=== PATIENT | male | born 1980 | race Caucasian/White ===

== ENCOUNTER 2022-11-24 09:23 | Emergency (ER) | payer OTHER, SELFPAY ==
[2022-11-24] VITALS (14 sets, daily range): BP systolic 131–166; BP diastolic 83–110; PULSE 53–66; RESP 15–33; TEMP 37; O2SAT 95–100; BMI 26.4
[2022-11-24] MEDS: ONDANSETRON 4 MG ODT PO (10:05)
[2022-11-24] MEDS: PANTOPRAZOLE 40 MG VIAL IV (10:37)
[2022-11-24 10:39] LABS: Alanine Aminotransferase 44 IU/L (<50); Albumin 4.5 g/dL (3.5-5.0); Albumin Globulin Ratio 1.4 (1.0-2.8); Alkaline Phosphatase 66 U/L (38-126); Aspartate Aminotransferase 30 IU/L (17-59); BUN Creatinine Ratio 23.9 (6-22); Bilirubin Total 0.6 mg/dL (0.2-1.3); Blood Urea Nitrogen 17 mg/dL (9-20); Calcium 9.7 mg/dL (8.4-10.2); Carbon Dioxide 29 mmol/L (22-32); Chloride 100 mmol/L (98-107); Estimated Glomerular Filt Rate > 60 mL/min (>60); Globulin 3.2 g/dL (1.7-4.1); Glucose 113 mg/dL (70-100); HEMOLYSIS < 15 (0-50); Lipase 70 U/L (23-300); Potassium 4.2 mmol/L (3.4-5.1); Sodium 135 mmol/L (137-145); Total Protein 7.7 g/dL (6.3-8.2)
[2022-11-24 10:48] LABS: Add Manual Diff / Slide Review NO; Basophils Absolute Auto 0 /uL (0-100); Basophils Percent Auto 0.5 % (0-2); Eosinophils Absolute Auto 100 /uL (0-450); Hematocrit 43.5 % (41-53); Hemoglobin 15.2 g/dL (13.5-17.5); Lymphocytes Absolute Auto 1700 /uL (1100-4500); Lymphocytes Percent Auto 27.7 % (25-40); Mean Corpuscular Hemoglobin 28.9 PG (26-34); Mean Corpuscular Volume 82.7 fL (80-100); Monocytes Absolute Auto 300 /uL (0-900); Monocytes Percent Auto 4.8 % (3-14); Neutrophils Absolute Auto 4100 /uL (1500-7000); Platelet Count 238 X10^3/uL (150-400); Red Blood Cell Count 5.26 X10^6/uL (4.5-5.9); Red Cell Distribution Width 12.5 % (11.6-14.8); White Blood Cell Count 6.2 X10^3/uL (4.5-11.0)
[2022-11-24 11:19] LABS: Troponin I < 0.012 ng/mL (0.01-0.034)
--- NOTE | 2022-11-24 11:27 | DI.US.S_ITS ---
PROCEDURE: US ABDOMEN LIMITED INDICATIONS: RUQ PAIN TECHNIQUE: Real-time scanning was performed of the abdominal and retroperitoneal organs, with image documentation. COMPARISON: None. FINDINGS: Liver: Liver is normal in size and homogeneous in echotexture. Gallbladder: Unremarkable Biliary ducts: Intrahepatic bile ducts are non-dilated. Extrahepatic bile duct caliber measures 4 mm. Normal is 6-7 mm or less in diameter, or 10 mm or less post-cholecystectomy. Pancreas: Not visualized due to overlying bowel gas. Miscellaneous: No free abdominal fluid. IMPRESSION: Unremarkable gallbladder. Dictated by: Dae Browne M.D. on 11/24/2022 at 11:52 Approved by: Dae Browne M.D. on 11/24/2022 at 11:53
--- NOTE | 2022-11-24 13:15 | ED_ITS ---
HPI - Abdominal Pain <Karlene Renteria PA-C - Last Filed: 11/24/22 13:34> General Chief Complaint: Abdominal Pain Stated Complaint: T-1 Abd pain/N Time Seen by Provider: 11/24/22 11:26 Source: patient Mode of arrival: Ambulatory History of Present Illness HPI narrative: This is a previously healthy 42-year-old male who presents with concern for upper abdominal pain since Sunday. Patient states that after meal Sunday night he started to feel a dull pain across the top of his belly. He tried Tylenol for this as well as Tums over the next day and a half, as of this morning he had very very intense pain and decided to come into the emergency department for further evaluation. He describes it as a constant dull pain it was up to a 7/10 at times but improved with Tums down to a 5/10. He states after receiving medication in the emergency department he is feeling a lot better it is still present but quite mild in comparison. He states he does not know of any specific history of GERD or reflux issues although he notes sometimes after I eat meals I get a little bit of reflux. He thinks that other than Sunday night when it triggered it, eating seems to improve his pain but he is unsure. This morning he had some nausea and sensation of acid coming up into his throat. He denies shortness of breath, chest pain, lower abdominal pain, fevers, chills, vomiting, diarrhea, constipation, dysuria, or any other symptoms. Related Data Previous Rx's Medication Instructions Recorded azithromycin 250 mg tablet 0 tab PO QDAY #6 tabs 05/13/17 (Zithromax Z-Osman) dexamethasone sodium phosphate 10 10 mg PO X1 #1 ea 05/13/17 mg/mL injection solution pantoprazole 20 mg tablet,delayed 20 mg PO DAILY 14 days #14 tabs 11/24/22 release Allergies Allergy/AdvReac Type Severity Reaction Status Date / Time No Known Drug Allergies Allergy Verified 11/24/22 12:41 Review of Systems <Karlene Renteria PA-C - Last Filed: 11/24/22 13:34> Review of Systems Narrative: See HPI Patient History <Karlene Renteria PA-C - Last Filed: 11/24/22 13:34> Social History Smoking Status: Former smoker Smoking Status: Former smoker tobacco type: cigarettes alcohol intake frequency: 0-2 drinks per day Alcohol type: hard liquor Substance Use Type: does not use Exam <Karlene Renteria PA-C - Last Filed: 11/24/22 13:34> Narrative Exam Narrative: GENERAL: 42 year old patient appears stated age. Well-developed patient, in mild distress, nontoxic. HEAD: Atraumatic. Normocephalic. EYES: Pupils equal round and reactive. Extraocular motions intact. No scleral icterus. No injection or drainage. ENT: Nose without bleeding, purulent drainage. Airway patent. NECK: Trachea midline. CARDIOVASCULAR: Regular rate and rhythm without murmurs, gallops, or rubs. RESPIRATORY: Clear to auscultation. Breath sounds equal bilaterally. No wheezes, rales, or rhonchi. GASTROINTESTINAL: Abdomen soft, there is right upper quadrant tenderness, otherwise non-tender, nondistended. EXTREMITIES: No edema or joint tenderness. BACK: Nontender without deformity or crepitance. No flank tenderness. NEURO: AOx3. SKIN: No rash or erythema of visible areas Initial Vital Signs Initial Vital Signs: Vital Signs Pulse Rate 64 11/24/22 09:53 Pulse Oximetry 97 11/24/22 09:53 <Anisha Simeon DO - Last Filed: 11/24/22 19:17> Initial Vital Signs Initial Vital Signs: Vital Signs Pulse Rate 64 11/24/22 09:53 Pulse Oximetry 97 11/24/22 09:53 Course <Karlene Renteria PA-C - Last Filed: 11/24/22 13:34> Orders Ordered: ED Orders 11/24/22 10:20 Complete Blood Count AUTO DIFF Stat Comprehensive Metabolic Panel Stat Lipase Stat 11/24/22 10:46 Trop I [Troponin I] Stat 11/24/22 11:04 EKG-12 Lead Stat 11/24/22 11:27 US abdomen limited Stat Discontinued Medications Ondansetron HCl (Ondansetron 4 Mg Odt) 4 mg PO NOW PRN PRN Reason: Nausea And Vomiting Last Admin: 11/24/22 10:05 Dose: 4 mg Documented By: RB Ondansetron HCl (Ondansetron 4 Mg/2 Ml Inj) 4 mg IV NOW PRN PRN Reason: Nausea And Vomiting Pantoprazole Sodium (Pantoprazole 40 Mg Vial) 40 mg IV NOW ONE Stop: 11/24/22 10:35 Last Admin: 11/24/22 10:37 Dose: 40 mg Documented By: RB Vital Signs Vital signs: Vital Signs - 8 hr 11/24/22 11:30 11/24/22 11:31 11/24/22 11:31 Pulse Rate 63 63 Respiratory Rate 30 H 22 Blood Pressure 136/88 Pulse Oximetry 98 98 Oxygen Delivery Method 11/24/22 12:00 11/24/22 12:00 11/24/22 12:30 Pulse Rate 53 L Respiratory Rate Blood Pressure 139/87 139/91 H Pulse Oximetry 99 Oxygen Delivery Method 11/24/22 12:30 11/24/22 13:00 11/24/22 13:04 Pulse Rate 62 64 Respiratory Rate 33 H 24 Blood Pressure 139/83 Pulse Oximetry 99 97 Oxygen Delivery Method 11/24/22 13:04 11/24/22 13:30 11/24/22 13:30 Pulse Rate 56 L 66 Respiratory Rate 27 H 26 H Blood Pressure 155/88 H Pulse Oximetry 100 99 Oxygen Delivery Method 11/24/22 13:47 11/24/22 13:47 Pulse Rate 59 L Respiratory Rate 24 Blood Pressure 137/85 Pulse Oximetry 99 Oxygen Delivery Method Room Air <Anisha Simeon, - Last Filed: 11/24/22 19:17> Orders Ordered: ED Orders 11/24/22 10:20 Complete Blood Count AUTO DIFF Stat Comprehensive Metabolic Panel Stat Lipase Stat 11/24/22 10:46 Trop I [Troponin I] Stat 11/24/22 11:04 EKG-12 Lead Stat 11/24/22 11:27 US abdomen limited Stat Discontinued Medications Ondansetron HCl (Ondansetron 4 Mg Odt) 4 mg PO NOW PRN PRN Reason: Nausea And Vomiting Last Admin: 11/24/22 10:05 Dose: 4 mg Documented By: RB Ondansetron HCl (Ondansetron 4 Mg/2 Ml Inj) 4 mg IV NOW PRN PRN Reason: Nausea And Vomiting Pantoprazole Sodium (Pantoprazole 40 Mg Vial) 40 mg IV NOW ONE Stop: 11/24/22 10:35 Last Admin: 11/24/22 10:37 Dose: 40 mg Documented By: CHRISTINE Vital Signs Vital signs: Vital Signs - 8 hr 11/24/22 11:30 11/24/22 11:31 11/24/22 11:31 Pulse Rate 63 63 Respiratory Rate 30 H 22 Blood Pressure 136/88 Pulse Oximetry 98 98 Oxygen Delivery Method 11/24/22 12:00 11/24/22 12:00 11/24/22 12:30 Pulse Rate 53 L Respiratory Rate Blood Pressure 139/87 139/91 H Pulse Oximetry 99 Oxygen Delivery Method 11/24/22 12:30 11/24/22 13:00 11/24/22 13:04 Pulse Rate 62 64 Respiratory Rate 33 H 24 Blood Pressure 139/83 Pulse Oximetry 99 97 Oxygen Delivery Method 11/24/22 13:04 11/24/22 13:30 11/24/22 13:30 Pulse Rate 56 L 66 Respiratory Rate 27 H 26 H Blood Pressure 155/88 H Pulse Oximetry 100 99 Oxygen Delivery Method 11/24/22 13:47 11/24/22 13:47 Pulse Rate 59 L Respiratory Rate 24 Blood Pressure 137/85 Pulse Oximetry 99 Oxygen Delivery Method Room Air MDM - Abdominal Pain <Karlene Renteria PA-C - Last Filed: 11/24/22 13:34> Differential Diagnosis Differential diagnosis: Likely abdominal pain, gastroenteritis and other (GERD, acid reflux, biliary colic) Medical Records Attestation: I reviewed the patient's medical records. Lab Data Attestation: I reviewed the patient's lab results. 11/24/22 10:20 11/24/22 10:20 Labs: Lab Results 11/24/22 11/24/22 11/24/22 Range/Units 10:20 10:20 10:46 WBC 6.2 (4.5-11.0) X10^3/uL RBC 5.26 (4.5-5.9) X10^6/uL Hgb 15.2 (13.5-17.5) g/dL Hct 43.5 (41-53) % MCV 82.7 (80-100) fL MCH 28.9 (26-34) PG MCHC 35.0 (30-36) % RDW 12.5 (11.6-14.8) % Plt Count 238 (150-400) X10^3/uL Neut % (Auto) 66.0 (50-75) % Lymph % (Auto) 27.7 (25-40) % [place] % (Auto) 4.8 (3-14) % Eos % (Auto) 1.0 L (2-4) % Baso % (Auto) 0.5 (0-2) % Neut # (Auto) 4100 (1147-8991) /uL Lymph # (Auto) 1700 (8293-7407) /uL [place] # (Auto) 300 (0-900) /uL Eos # (Auto) 100 (0-450) /uL Baso # (Auto) 0 (0-100) /uL Sodium 135 L (137-145) mmol/L Potassium 4.2 (3.4-5.1) mmol/L Chloride 100 (98-107) mmol/L Carbon Dioxide 29 (22-32) mmol/L BUN 17 (9-20) mg/dL Creatinine 0.71 (0.66-1.25) mg/dL Estimated GFR > 60 (>60) mL/min BUN/Creatinine Ratio 23.9 H (6-22) Glucose 113 H (70-100) mg/dL Calcium 9.7 (8.4-10.2) mg/dL Total Bilirubin 0.6 (0.2-1.3) mg/dL AST 30 (17-59) IU/L ALT 44 (<50) IU/L Alkaline Phosphatase 66 (38-126) U/L Troponin I < 0.012 (0.01-0.034) ng/mL Total Protein 7.7 (6.3-8.2) g/dL Albumin 4.5 (3.5-5.0) g/dL Globulin 3.2 (1.7-4.1) g/dL Albumin/Globulin Ratio 1.4 (1.0-2.8) Lipase 70 (23-300) U/L Point of care testing: Urine Dip Bedside Urine Glucose Negative Bedside Urine Bilirubin - Negative Bedside Urine Ketone - Negative Urine Specific [place] 1.010 Bedside Urine Occult Blood - Negative Bedside Urine pH 6.5 Bedside Urine Protein - Negative Bedside Urine Urobilinogen - Negative Bedside Urine Nitrite - Negative Bedside Urine Leukocytes - Negative Esterase Imaging Data US - abdomen: My Impression: Agree with Radiology interpretation Radiologist's Impression: [address] [address] Ultrasound Report Signed Patient: Christiano Still MR#: [id number] : 1980 Acct:[id number] Age/Sex: 42 / M Date of Service: 11/24/22 Loc: ED Accession Number: [id number] ?? Procedure: US abdomen limited Ordering Provider: Karlene Renteria P.A-C PROCEDURE:? US ABDOMEN LIMITED ? INDICATIONS:? RUQ PAIN ? TECHNIQUE:? Real-time scanning was performed of the abdominal and retroperitoneal organs, with image documentation.? ? COMPARISON:? None. ? FINDINGS:? ? Liver:? Liver is normal in size and homogeneous in echotexture.? ? Gallbladder:? Unremarkable ? Biliary ducts:? Intrahepatic bile ducts are non-dilated.? Extrahepatic bile duct caliber measures 4 mm.? Normal is 6-7 mm or less in diameter, or 10 mm or less post-cholecystectomy.? ? Pancreas:? Not visualized due to overlying bowel gas. Miscellaneous:? No free abdominal fluid.? ? ? IMPRESSION:? Unremarkable gallbladder. ? Dictated by: Dae Browne M.D. on 11/24/2022 at 11:52 ? ? Approved by: Dae Browne M.D. on 11/24/2022 at 11:53?? Treatment and Disposition Shared decision making:: Shared decision-making was used and determine this patient's plan care and treatment in the emergency department. MDM Narrative Medical decision making narrative: This is a well-appearing 42-year-old male who presents with 2-1/2 days of upper abdominal pain that is dull and fairly constant. Patient had unremarkable labs today including LFTs CBC CMP, he had significant improvement in his discomfort after administration of IV Protonix as well as Zofran. Ultrasound returned without evidence of cholelithiasis or cholecystitis. Suspect GERD in his patient however a gastric ulcer is also a possibility. Discussed potential etiologies of patient's symptoms with him and will place him on a PPI for 2 week course. Advise patient to follow up with his primary care provider. Return precautions provided, follow-up plan discussed, all questions answered. <Anisha Simeon, - Last Filed: 11/24/22 19:17> Lab Data Labs: Lab Results 05/19/23 05/19/23 05/19/23 Range/Units 10:20 10:20 10:46 WBC 6.2 (4.5-11.0) X10^3/uL RBC 5.26 (4.5-5.9) X10^6/uL Hgb 15.2 (13.5-17.5) g/dL Hct 43.5 (41-53) % MCV 82.7 (80-100) fL MCH 28.9 (26-34) PG MCHC 35.0 (30-36) % RDW 12.5 (11.6-14.8) % Plt Count 238 (150-400) X10^3/uL Neut % (Auto) 66.0 (50-75) % Lymph % (Auto) 27.7 (25-40) % [place] % (Auto) 4.8 (3-14) % Eos % (Auto) 1.0 L (2-4) % Baso % (Auto) 0.5 (0-2) % Neut # (Auto) 4100 (6638-0760) /uL Lymph # (Auto) 1700 (4916-0414) /uL [place] # (Auto) 300 (0-900) /uL Eos # (Auto) 100 (0-450) /uL Baso # (Auto) 0 (0-100) /uL Sodium 135 L (137-145) mmol/L Potassium 4.2 (3.4-5.1) mmol/L Chloride 100 (98-107) mmol/L Carbon Dioxide 29 (22-32) mmol/L BUN 17 (9-20) mg/dL Creatinine 0.71 (0.66-1.25) mg/dL Estimated GFR > 60 (>60) mL/min BUN/Creatinine Ratio 23.9 H (6-22) Glucose 113 H (70-100) mg/dL Calcium 9.7 (8.4-10.2) mg/dL Total Bilirubin 0.6 (0.2-1.3) mg/dL AST 30 (17-59) IU/L ALT 44 (<50) IU/L Alkaline Phosphatase 66 (38-126) U/L Troponin I < 0.012 (0.01-0.034) ng/mL Total Protein 7.7 (6.3-8.2) g/dL Albumin 4.5 (3.5-5.0) g/dL Globulin 3.2 (1.7-4.1) g/dL Albumin/Globulin Ratio 1.4 (1.0-2.8) Lipase 70 (23-300) U/L Point of care testing: Urine Dip Bedside Urine Glucose Negative Bedside Urine Bilirubin - Negative Bedside Urine Ketone - Negative Urine Specific [place] 1.010 Bedside Urine Occult Blood - Negative Bedside Urine pH 6.5 Bedside Urine Protein - Negative Bedside Urine Urobilinogen - Negative Bedside Urine Nitrite - Negative Bedside Urine Leukocytes - Negative Esterase ECG Data Attestation: I personally reviewed and interpreted this ECG as follows: Prior ECG tracings: not available for review Interpretation: Sinus bradycardia rate of 55 VA 174 QRS of 104 QTC of 375. Three not present in 2 or AVF. No acute changes otherwise appreciated. Discharge Plan Departure Patient Disposition: Home Clinical Impression: Acid reflux, Acute upper abdominal pain Instructions: DI for Dyspepsia Activity Restrictions/Additional Instructions: *You have been diagnosed with dyspepsia/acid reflux *What to do: *Please continue to take your regular medications as directed. [ 1] New medication prescriptions sent to your pharmacy: [Pantopra zole] [ ] New medication written as a paper prescription [ ] No new medications given *Please follow up with your primary care provider in 2-3 days, call for an appointment. Let them know you were seen in the Emergency Department and that we ask that you be seen in follow up. We will electronically transmit a record of today's note if your PCP is in our system. I would like to take the pantoprazole for the next 2 weeks as prescribed, and see how you are doing after this, I encourage you to follow up with your primary care provider. You will want to be thoughtful about your diet moving forward as certain foods can definitely trigger this. There is a possibility that you have an ulcer however it is also likely that you may just have too much acid buildup currently. *If you do not have a primary care provider please contact the [facility] Resource line at [phone]. They will ask some questions about your medical history and help get you set up with a doctor in the community. *Return to Emergency Department if you should have any new, worsening or ian rning symptoms, such as [fever greater than 101 F, shaking chills, worsening pain, persistent vomiting or other bothersome symptoms] Prescriptions: New pantoprazole 20 mg tablet,delayed release (DR/EC) 20 mg PO DAILY 14 Days Qty: 14 0RF No Action azithromycin [Zithromax Z-Osman] 250 MG tablet 0 tab PO QDAY Qty: 6 0RF dexamethasone sodium phosphate 10 MG/1 ML solution 10 mg PO X1 Qty: 1 0RF Referrals: ProviderMelissa [Primary Care Provider] - Stand Alone Forms: Patient Portal/API
== END 2022-11-24 13:53 | disposition home or self-care (01) ==
PROVIDERS: Emergency Medicine; Emergency Provider Student in an Organized Health Care Education/Training Program
DX: R10.10 Upper abdominal pain, unspecified (principal); K21.9 Gastro-esophageal reflux disease without esophagitis
CPT/HCPCS: 36415; 76705; 80053; 81003; 83690; 84484; 85025; 93005; 96374; 99284; C9113

== ENCOUNTER → 2025-01-24 09:44 | Outpatient (CLI) | payer OTHER, SELFPAY ==
--- NOTE | 2025-01-24 09:57 | DI.MRI.S_ITS ---
PROCEDURE: MR SHOULDER LT WO CON INDICATIONS: SHOULDER INJURY TECHNIQUE: Noncontrast oblique coronal T2 fast spin echo with fat saturation, oblique sagittal T1 spin echo and T2 fast spin echo with fat saturation, axial T1 spin echo and T2 fast spin echo with fat saturation through the shoulder. COMPARISON: None. FINDINGS: Image quality: Excellent. Rotator cuff: Mild tendinosis of the supraspinatus and infraspinatus, without tear. The teres minor and the subscapularis are unremarkable. No muscle edema or fatty atrophy. Bones and bursae: Mild degenerative changes of the acromioclavicular joint. Type 1 acromion. No os acromiale. Mild subacromial/subdeltoid bursitis. No acute fracture. No signal about the glenohumeral joint is normal for age. No focal chondral defect of the glenohumeral articulation. Capsule and soft tissues: The labrum is intact. Mild tenosynovitis of the extra-articular biceps tendon. Mild tendinosis of the intra-articular biceps tendon. Trace glenohumeral effusion. Mild subcoracoid bursitis. IMPRESSION: 1. Mild tendinosis supraspinatus and infraspinatus, without tear. 2. Mild tenosynovitis of the extra-articular biceps tendon. Dictated by: Millie Benitez M.D. on 01/26/2025 at 16:52 Approved by: Millie Benitez M.D. on 01/26/2025 at 17:00
== END ==
LOC: MRI 09:45
DX: M25.312 Other instability, left shoulder (principal); M65.912 Unspecified synovitis and tenosynovitis, left shoulder
CPT/HCPCS: 73221